=== PATIENT | female | born 1990 ===

== ENCOUNTER → 2017-04-10 | Outpatient (CLI) | payer MEDICAID ==
[~2017-04-10] MED LIST: IOPAMIDOL 76% 75 ML INFUS BTL 75 ML ONE
--- NOTE | 2017-04-10 14:52 | RADIOLOGY IMAGING REPORT ---
[place] [facility] [place] Cathy Walker : 1990 MR: [id number] V: [id number] EXAM DATE: ORDERING PHYSICIAN: SETH WAGNER TECHNOLOGIST: Location: [facility] Patient: Cathy Walker : 1990 Visit/Account:[id number] Date of Sevice: 04/10/2017 ABDOMEN W W/O CONTRAST HISTORY: Periumbilical mass TECHNIQUE: CT abdomen with and without intravenous contrast. Contiguous helical images was performed from the lung bases to the iliac crests. One of the following dose optimization techniques was utilized in the performance of this exam: Autom ated exposure control; adjustment of the mA and/or kV according to the patient's size; or use of an i terative reconstruction technique. Specific details can be referenced in the facility's radiology C T exam operational policy. CONTRAST: 75 cc of Isovue-370 COMPARISON: None. FINDINGS: Visualized lung bases: Negative. Hepatobiliary: There is fatty infiltration of liver. Liver measures 19.4 cm in craniocaudal length w hich is upper limits of normal. Small gallstone is noted in gallbladder. Bile ducts are decompressed. Spleen: Negative. Adrenals: Negative. Kidneys/Visualized : There may be a tiny nonobstructing 1 mm stone in the superior pole left kidne y measuring 1 to 2 mm. No obstructing ureteral stones. Pancreas: Negative. Visualized GI: Negative. Vessels/spaces/nodes: Negative. Bones/soft tissues: Patient has a mild scoliosis. There is a small umbilical hernia with fat in the defect which may account for the palpable mass seen on series 6, image 90. IMPRESSION: 1. Small umbilical hernia with fat in the defect which may account for the palpable area of concern. 2. Questionable tiny nonobstructing stone superior pole left kidney measuring 1 mm. Report Dictated By: Shaheed Kang MD at 04/10/2017 2:41 PM Report E-Signed By: Shaheed Kang MD at 04/10/2017 2:48 PM WSN:[id number]
== END ==
LOC: CT 04-04 00:17
PROVIDERS: ATTEND Nurse Practitioner Family
DX: K42.9 Umbilical hernia without obstruction or gangrene (principal); N20.0 Calculus of kidney
CPT/HCPCS: 74170; Q9967

== ENCOUNTER → 2017-05-11 | Outpatient (CLI) | payer MEDICAID ==
[2017-05-11 11:41] LABS: PLATELET COUNT, AUTOMATED 250 K/uL (150-450)
[2017-05-11 11:50] LABS: LDL CHOLESTEROL 107 mg/dl
== END ==
LOC: LAB 11:16
PROVIDERS: ATTEND Nurse Practitioner Family
DX: E03.9 Hypothyroidism, unspecified (principal); R10.11 Right upper quadrant pain; E66.01 Morbid (severe) obesity due to excess calories; Z68.43 Body mass index [BMI] 50.0-59.9, adult
CPT/HCPCS: 36415; 82040; 82247; 82310; 82374; 82435; 82465; 82565; 82947; 83036; 83718; 84075; 84132; 84155; 84295; 84443; 84450; 84460; 84478; 84520; 85025

== ENCOUNTER 2018-06-15 07:50 | Emergency (ER) | payer MEDICAID ==
--- NOTE | 2018-06-15 08:19 | ER Report ---
History and Physical Time Seen By MD: 08:05 Hx. of Stated Complaint: PATIENT REPORTS BACK AND RIB PAIN THAT STARTED THIS MORNING HPI/ROS CHIEF COMPLAINT: Abdominal pain HISTORY OF PRESENT ILLNESS: Patient is 27-year-old female morbidly obese comes emergency Department today with complaint of abdominal pain localized the right upper quadrant epigastrium. Patient states she's had gallbladder issues in the past has had a known gallstone before however no surgical intervention was done at that time. Patient states that she woke this morning sharp stabbing pain localized to right upper quadrant last night she had [employer] for dinner. She has not eaten anything today. Patient denies any nausea vomiting diarrhea fever ch ills shortness of breath or cough. Patient states the pain is somewhat episodic has been getting progressively worse in the last hour or so. Patient has taken nothing for it. Patient has no additional complaints at this time REVIEW OF SYSTEMS: Respiratory: No cough, no dyspnea. Cardiovascular: No chest pain, no palpitations. Gastrointestinal: Abdominal pain no nausea vomiting or diarrhea Musculoskeletal: No back pain. Remainder of the 14 system rev: Yes Allergies: Coded Allergies: No Known Drug Allergies (Unverified , 06/15/18) Reviewed Nurses Notes: Yes Old Medical Records Reviewed: Yes Hx Substance Use Disorder: No Hx Alcohol Use: No Constitutional Vital Sign - Last 24 Hours 06/15/18 06/15/18 06/15/18 06/15/18 08:00 08:04 08:20 08:30 Temp 97.5 Pulse 71 71 Resp 20 B/P (MAP) 128/85 128/85 (99) 129/81 (97) Pulse Ox 97 97 O2 Delivery Room Air 06/15/18 06/15/18 08:50 09:00 Pulse 65 B/P (MAP) 91/49 (63) Pulse Ox 98 Physical Exam General Appearance: [The patient is alert, has no immediate need for airway protection and no current signs of toxicity.] [ ] Eyes: Pupils equal and round no injection. Respiratory: Chest is non tender, lungs are clear to auscultation. Cardiac: regular rate and rhythm [ ] Gastrointestinal: Tenderness in the right upper quadrant epigastrium and mild to moderate palpation normal bowel sounds no rebound guarding or masses Musculoskeletal: Neck: Neck is supple and non tender. Extremities have full range of motion and are non tender. Skin: No rashes or lesions. [ ] DIFFERENTIAL DIAGNOSIS: After history and physical exam differential diagnosis was considered for gallstone gallstone pancreatitis pancreatitis cholelithiasis choledocholithiasis ascending cholangitis Medical Decision Making Data Points Result Diagram: 06/15/18 0815 06/15/18 0815 Laboratory Hematology Test 06/15/18 08:15 Red Blood Count 4.74 M/uL (4.17-5.56) Mean Corpuscular Volume 91.7 fL (80.0-96.0) Mean Corpuscular Hemoglobin 30.5 pg (26.0-33.0) Mean Corpuscular Hemoglobin Concent 33.2 g/dL (32.0-36.0) Red Cell Distribution Width 13.9 % (11.5-14.5) Mean Platelet Volume 8.9 fL (7.2-11.1) Neutrophils (%) (Auto) 60.8 % (39.4-72.5) Lymphocytes (%) (Auto) 29.4 % (17.6-49.6) Monocytes (%) (Auto) 7.0 % (4.1-12.4) Eosinophils (%) (Auto) 2.0 % (0.4-6.7) Basophils (%) (Auto) 0.8 % (0.3-1.4) Nucleated RBC Relative Count (auto) 0.0 /100WBC Neutrophils # (Auto) 4.7 K/uL (2.0-7.4) Lymphocytes # (Auto) 2.3 K/uL (1.3-3.6) Monocytes # (Auto) 0.5 K/uL (0.3-1.0) Eosinophils # (Auto) 0.2 K/uL (0.0-0.5) Basophils # (Auto) 0.1 K/uL (0.0-0.1) Nucleated RBC Absolute Count (auto) 0.00 K/uL Prothrombin Time 12.6 seconds (12.0-14.4) Prothromb Time International Ratio 0.94 Activated Partial Thromboplast Time 31 seconds (23-35) Sodium Level 138 mmol/L (137-145) Potassium Level 3.9 mmol/L (3.5-5.0) Chloride Level 106 mmol/L (98-107) Carbon Dioxide Level 23 mmol/L (22-31) Blood Urea Nitrogen 12 mg/dl (7-18) Creatinine 0.70 mg/dl (0.52-1.04) Glomerular Filtration Rate Calc > 60.0 Random Glucose 135 mg/dl (75-110) Calcium Level 9.3 mg/dl (8.4-10.2) Total Bilirubin 0.2 mg/dl (0.2-1.3) Aspartate Amino Transf (AST/SGOT) 24 U/L (0-35) Alanine Aminotransferase (ALT/SGPT) 18 U/L (0-56) Alkaline Phosphatase 57 U/L (0-126) Total Protein 7.3 g/dl (6.3-8.2) Albumin 4.1 g/dl (3.5-5.0) Lipase 123 U/L (23-300) Serum Alcohol < 10 mg/dl Chemistry Test 06/15/18 08:15 White Blood Count 7.8 k/uL (4.5-11.0) Red Blood Count 4.74 M/uL (4.17-5.56) Hemoglobin 14.4 g/dL (12.0-16.0) Hematocrit 43.5 % (34.0-47.0) Mean Corpuscular Volume 91.7 fL (80.0-96.0) Mean Corpuscular Hemoglobin 30.5 pg (26.0-33.0) Mean Corpuscular Hemoglobin Concent 33.2 g/dL (32.0-36.0) Red Cell Distribution Width 13.9 % (11.5-14.5) Platelet Count 269 K/uL (150-450) Mean Platelet Volume 8.9 fL (7.2-11.1) Neutrophils (%) (Auto) 60.8 % (39.4-72.5) Lymphocytes (%) (Auto) 29.4 % (17.6-49.6) Monocytes (%) (Auto) 7.0 % (4.1-12.4) Eosinophils (%) (Auto) 2.0 % (0.4-6.7) Basophils (%) (Auto) 0.8 % (0.3-1.4) Nucleated RBC Relative Count (auto) 0.0 /100WBC Neutrophils # (Auto) 4.7 K/uL (2.0-7.4) Lymphocytes # (Auto) 2.3 K/uL (1.3-3.6) Monocytes # (Auto) 0.5 K/uL (0.3-1.0) Eosinophils # (Auto) 0.2 K/uL (0.0-0.5) Basophils # (Auto) 0.1 K/uL (0.0-0.1) Nucleated RBC Absolute Count (auto) 0.00 K/uL Prothrombin Time 12.6 seconds (12.0-14.4) Prothromb Time International Ratio 0.94 Activated Partial Thromboplast Time 31 seconds (23-35) Glomerular Filtration Rate Calc > 60.0 Calcium Level 9.3 mg/dl (8.4-10.2) Total Bilirubin 0.2 mg/dl (0.2-1.3) Aspartate Amino Transf (AST/SGOT) 24 U/L (0-35) Alanine Aminotransferase (ALT/SGPT) 18 U/L (0-56) Alkaline Phosphatase 57 U/L (0-126) Total Protein 7.3 g/dl (6.3-8.2) Albumin 4.1 g/dl (3.5-5.0) Lipase 123 U/L (23-300) Serum Alcohol < 10 mg/dl Coagulation Test 06/15/18 08:15 Prothrombin Time 12.6 seconds Prothromb Time International Ratio 0.94 Activated Partial Thromboplast Time 31 seconds Toxicology Test 06/15/18 08:15 Serum Alcohol < 10 mg/dl ED Course/Re-evaluation ED Course ED course 27-year-old morbidly obese male comes emergency Department today with right upper quadrant pain labs are are normal ultrasound does show multiple small gallstones some in the neck of the gallbladder but mobile. Obstructive no thickening of the gallbladder wall no fluid around the gallbladder no signs of cholelithiasis choledocholithiasis ascending cholangitis or indication for further testing at this time emergently. Advised patient to follow up with general surgery for possible elective cholelithiasis [place] removal of her gallbladder. Urinalysis unable to obtain laboratory follow with primary care Decision to Disposition Date: June 15, 2018 Decision to Disposition Time: 09:58 Depart Departure Latest Vital Signs Vital Signs Date Time Temp Pulse Resp B/P (MAP) Pulse Ox O2 Delivery O2 Flow Rate FiO2 06/15/18 09:00 91/49 (63) 06/15/18 08:50 65 98 06/15/18 08:00 97.5 20 Room Air Impression: Primary Impression: Gallstones Condition: Improved Disposition: HOME OR SELF-CARE Referrals: SETH WAGNER (PCP) ANAIS COLLINS MD 5 Days Patient Instructions: Gallstones (DC) BHARGAV ARRINGTON MD June 15, 2018 08:19
[2018-06-15 08:25] LABS: PLATELET COUNT, AUTOMATED 269 K/uL (150-450)
[2018-06-15 08:32] LABS: INR 0.94
--- NOTE | 2018-06-15 09:50 | RADIOLOGY IMAGING REPORT ---
FACILITY: [facility] PATIENT NAME: Cathy Walker : 1990 MR: [id number] V: [id number] EXAM DATE: ORDERING PHYSICIAN: BHARGAV ARRINGTON TECHNOLOGIST: Location: [facility] Patient: Cathy Walker : 1990 Visit/Account:[id number] Date of Sevice: 06/15/2018 Right upper abdomen ultrasound. HISTORY: Right upper quadrant pain. COMPARISON: CT scan 04/10/2017. The liver measures 13.8 cm in sagittal length. The liver parenchyma is mildly diffusely heterogeneous . The liver is free of focal defects. The surface of the liver is smooth. The portal vein is patent. No intra or extrahepatic biliary dilatation. Several small echogenic mobile shadowing stones are pres ent within the gallbladder. The gallbladder wall is upper limits of normal in thickness. No abnormal pericholecystic fluid collections. The sonographic Cespedes's sign is negative. The pancreas is unremar kable. The right kidney is normal in size. No hydronephrosis. No ascites. Portions of the abdominal a [place] and inferior vena cava are obscured. The spleen and left kidney were not included. The common bi le duct measures 3.1 mm in greatest AP diameter. IMPRESSION: Cholelithiasis. Mild fatty infiltration of the liver. The patient's provider has been paged by the Imaging Reefer Engineer at 9:50 PM on 06/15/2018. Report Dictated By: Eyal Sparks MD at 06/15/2018 9:43 AM Report E-Signed By: Eyal Sparks MD at 06/15/2018 9:46 AM WSN:[id number]
[2018-06-15 09:57] VITALS: BP 123/64
== END 2018-06-15 10:07 | disposition home or self-care (01) ==
LOC: ER 07:54
DX: K80.80 Other cholelithiasis without obstruction (principal)
CPT/HCPCS: 76705; 83690; 85025; 85610; 85730; 99284; G0480; 80320; 82040; 82247; 82310; 82374; 82435; 82565; 82947; 84075; 84132; 84155; 84295; 84450; 84460; 84520